=== PATIENT | female | born 1995 | race Caucasian/White ===

== ENCOUNTER 2024-03-31 17:15 | Emergency (ER) | payer OTHER ==
[~2024-03-31] VITALS: Ht 167.6 cm; Wt 75.0 kg
[2024-03-31 17:30] VITALS: BP 146/79; PULSE 99; RESP 18; O2SAT 96
--- NOTE | 2024-03-31 17:57 | ED.PDOC ---
History of Present Illness HPI Comments 28 y/o F presents with c/o abnormal labs, today. Patient reports coming to the ED for evaluation after being informed via telephone call from [facility] ED on having "+cocci in [her] blood" following recent ED visit, yesterday evening, for abdominal and back pain, nausea, vomiting, fatigue, and dehydration that she has been having for the past 3x days. Patient states on being discharged and informed, initially, on cause behind her symptoms being due to her "menstrual period" from aforementioned faciliyt and expresses dissatisfaction with her care then. Patient denies having any pertinent or relevant Hx in addition to recent injuries, sick contact, travel, spoiled food, sexual activities, or substance use/exposure. Patient denies having any symptoms at this time. Chief Complaint: Abnormal LAB's Time Seen by MD: 17:45 Reviewed Notes: Nurses Notes, Medications, Allergies Allergies: Uncoded Allergies: IV CONTRAST (Allergy, Unknown, 03/31/24) PENICILLIN (Allergy, Unknown, 03/31/24) Information Source: Patient Mode of Arrival: Ambulatory Severity: Moderate Timing: Hours Duration: Since onset Prehospital treatment: Other (see HPI) Past Medical History PAST MEDICAL HISTORY: Denies Surgical History (Other): left wrist Sx [employer]ELOPER History: Denies all [employer]ELOPER Hx Family History Family History: Reviewed,noncontributory to illness, No family hx of Cancer, No family hx of Heart re, No family hx of HTN, No family hx ofKidney re, No family hx of Liver re, No family hx of Lung re, No family hx of Stroke, Family hx of DM Social History Smoker: Non-Smoker Alcohol: Denies ETOH Use Drugs: Denies Drug Use Lives In: Home Constitutional: denies: chills, diaphoresis, fatigue, fever, malaise, sweats, weakness, others EENTM: denies: blurred vision, double vision, ear bleeding, ear discharge, ear drainage, ear pain, ear ringing, eye pain, eye redness, hearing loss, mouth pain, mouth swelling, nasal discharge, nose bleeding, nose congestion, nose pain, photophobia, tearing, throat pain, throat swelling, voice changes, others Respiratory: denies: cough, hemoptysis, orthopnea, SOB at rest, shortness of breath, SOB with excertion, stridor, wheezing, others Cardiovascular: denies: chest pain, dizzy spells, diaphoresis, Dyspnea on exertion, edema, irregular heart beat, left arm pain, lightheadedness, palpitat ions, PND, syncope, others Gastrointestinal: denies: abdomen distended, abdominal pain, blood streaked bow els, constipated, diarrhea, dysphagia, difficulty swallowing, hematemesis, melena, nausea, poor appetite, poor fluid intake, rectal bleeding, rectal pain, vomiting, others Genitourinary: denies: abnormal vagina bleeding, burning, dyspareunia, dysuria, flank pain, frequency, hematuria, incontinence, pain, , vagina discharge, urgency, others Neurological: denies: dizziness, fainting, headache, left sided numbness, left sided weakness, numbness, paresthesia, pre-existing deficit, right sided numbness, right sided weakness, seizure, speech problems, tingling, tremors, weakness, others Musculoskeletal: denies: back pain, gout, joint pain, joint swelling, muscle pain, muscle stiffness, neck pain, others Integumetry: denies: bruises, change in color, change in hair/nails, dryness, laceration, lesions, lumps, rash, wounds, others Allergic/Immunocompromised: denies: Difficulty Healing, Frequent Infections, Hives, Itching, others Hematologic/Lymphatic: denies: anemia, blood clots, easy bleeding, easy bruisi ng, swollen glands, others Endocrine: denies: excessive hunger, excessive sweating, excessive thirst, exce ssive urination, flushing, intolerance to cold, intolerance to heat, unexplained weight gain, unexplained weight loss, others Psychiatric: denies: anxiety, bipolar disorder, depression, hopeless, panic disorder, schizophrenia, sleepless, suicidal, others All Other Systems: Reviewed and Negative Physical Exam General Appearance: No Apparent Distress HEENT: Normal ENT Inspection, Pharynx Normal, TMs Normal Neck: Full Range of Motion, Non-Tender, Normal, Normal Inspection Respiratory: Chest Non-Tender, Lungs Clear, No Accessory Muscle Use, No Respiratory Distress, Normal Breath Sounds Cardiovascular: No Edema, No JVD, No Murmur, No Gallop, Normal Peripheral Pulses, Regular Rate/Rhythm Breast Exam: Deferred Gastrointestinal: No Organomegaly, Non Tender, No Pulsatile Mass, Normal Bowel Sounds, Soft Genitalia: Deferred Pelvic: Deferred Rectal: Deferred Extremities: No calf tenderness, Normal capillary refill, Normal inspection, Normal range of motion, Non-tender, No pedal edema Musculoskeletal : Apperance: Normal Neurologic: Alert, absorption plant operator II-XII nml as Tested, No Motor Deficits, Normal Affect, Normal Mood, No Sensory Deficits Cerebellar Function: Normal Reflexes: Normal Skin: Dry, Normal Color, Warm Lymphatic: No Adenopathy Was a procedure done? Was a procedure done?: No Differential Dx Considerations may include: abnormal labs X-Ray, Labs, Meds, VS Vital Signs Date Time Temp Pulse Resp B/P (MAP) Pulse Ox O2 Delivery O2 Flow Rate FiO2 03/31/24 17:30 98.0 99 18 146/79 (101) 96 At this time, the patient was eloped from the department's We did share that at this time we were not able to get her results for the blood cultures that were done because it was at another facility The patient's seems to have eloped from the department's Time of 1ST Reevaluation: 18:15 Reevaluation 1ST: Unchanged Patient Education/Counseling: Diagnosis, Treatment, Prognosis, Need For Follow Up Family Education/Counseling: No Family Present Departure 1 Departure Time of Disposition: 18:49 Impression: Primary Impression: Abnormal laboratory test Disposition: 01 HOME / SELF CARE / HOMELESS Condition: Fair Discharged With: Self Critical Care Note Critical Care Time?: No Stability Stability form required: No Heart Score Heart Score: Heart Score Response (Comments) Value History N/A 0 EKG N/A 0 Age N/A 0 Risk Factors N/A 0 Troponin N/A 0 Total 0 I personally scribed for AMANDA REED MD ([email or web address]) on 03/31/24 at 17:57. Electronically submitted by Geovanny Haro ([email or web address]). AMANDA REED MD Mar 31, 2024 17:57
== END 2024-03-31 18:30 | disposition left against medical advice (07) ==
LOC: ER 17:15
DX: R79.9 Abnormal finding of blood chemistry, unspecified (principal); E86.0 Dehydration; Z88.0 Allergy status to penicillin